=== PATIENT | male | born 1960 | race Caucasian/White ===

== ENCOUNTER 2024-06-08 12:34 | Outpatient (CLI) | payer BC, SELFPAY ==
--- NOTE | 2024-06-08 13:00 | MR_ITS ---
[facility] [address] [facility] [address] Phone:?[phone] Fax:?[phone] Referring Physician Information: Markus Jones M.D. [address] [facility] [address] Phone:?[phone] Fax:?[phone] Patient:Jaylene Glass D.O.B:?1960 Sex:?Male Phone:?[phone] [facility] MRN:?[id number] Exam Date:?06/08/2024 EXAM: MRI OF THE RIGHT SHOULDER CLINICAL INFORMATION: The patient is a 63-year-old with right shoulder pain. Evaluate for rotator cuff tear. PRIOR SURGERY: None reported. COMPARISON STUDIES: Comparison is made to prior radiographs dated 06/01/2024. TECHNICAL INFORMATION: Imaging was performed on a high-field, 1.5 [employer] MR scanner. Axial, coronal, and sagittal proton-density and T2 imaging of the right shoulder was performed in addition to coronal STIR imaging. FINDINGS: Articular/Extraarticular collections: Effusion: Moderate. Low signal intensity debris within the joint space can be seen, in keeping with synovitis and/or loose bodies. Subacromial/subdeltoid: Mild fluid is seen within the subacromial/subdeltoid bursa, in keeping with mild bursitis. Subcoracoid: No evidence for bursitis. Osseous structures: Proximal humerus: No evidence for bony injury to the proximal humerus can be seen. There is no evidence for greater tuberosity fracture. No Hill-Sachs or reverse Hill-Sachs deformity is seen. Glenoid: No acute bony abnormality of the glenoid fossa or glenoid neck can be seen. Acromioclavicular joint: Moderate changes of acromioclavicular joint arthrosis are present and can be seen on coronal series 6 image 12 and on sagittal series 8 image 12. Coracoacromial arch: Acromion morphology: Type II. No evidence for os acromiale. Acromiohumeral space: Within normal limits. Coracohumeral space: Within normal limits. Rotator cuff and deltoid: Supraspinatus: Moderate changes of supraspinatus tendinosis are present with intrasubstance splitting of the distal tendon fibers. No full-thickness tearing or retraction is seen. No atrophic changes of the supraspinatus muscle belly are identified. Infraspinatus: Moderate infraspinatus tendinosis can be seen. There is no evidence for full or partial-thickness tearing. No atrophic changes of the infraspinatus muscle belly are present. Teres minor: No evidence for tendinosis, tearing, or associated muscle belly atrophy. Subscapularis: Moderate subscapularis tendinosis can be seen. There is no evidence for full or partial-thickness tearing. No atrophic changes of the subscapularis muscle belly are noted. Deltoid: No evidence for strain or tearing. Biceps tendon: The intra-articular and biceps sulcus portions of the biceps tendon are normal. There is no evidence for rupture, dislocation, or subluxation. Glenohumeral joint and labrum: Articular Cartilage: Chondromalacia and chondral loss can be seen along the articular surfaces of the glenohumeral articulation with mild spurring along the articular margins. Areas of subcortical cystic change and subcortical edema can be seen within the glenoid, in keeping with mild osteoarthritic change. Labrum: Degeneration and poorly defined tearing of the anterior, superior, and posterior portions of the glenoid labrum can be seen. No paralabral ganglion cyst formation is identified. Capsular Soft Tissues: Nonspecific thickening of the capsular structures of the glenohumeral articulation can be seen in the region of the axillary recess and rotator cuff interval. The findings may relate to changes of adhesive capsulitis. CONCLUSION: 1. Moderate supraspinatus, infraspinatus, and subscapularis tendinosis with intrasubstance splitting of the supraspinatus tendon fibers. No full-thickness tearing or retraction is seen. 2. 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 3. Glenohumeral joint effusion with synovitis and/or loose bodies. 4. The long head of the biceps tendon appears intact. 5. Nonspecific capsular thickening, possibly related to adhesive capsulitis. [facility] Electronically signed on 06/08/2024 3:21:00 PM by Artemio Campbell M.D.
== END 2024-06-08 12:35 | disposition home or self-care (01) ==
LOC: MRI 12:37
PROVIDERS: PCP Family Medicine; Visit Provider Orthopaedic Surgery Sports Medicine
DX: M25.511 Pain in right shoulder (principal); M75.101 Unspecified rotator cuff tear or rupture of right shoulder, not specified as traumatic; M19.011 Primary osteoarthritis, right shoulder; M25.411 Effusion, right shoulder
CPT/HCPCS: 73221